=== PATIENT | male | born 1965 | race Caucasian/White ===

== ENCOUNTER 2022-11-22 15:02 | Emergency (ER) | payer OTHER, SELFPAY ==
[2022-11-22] VITALS (28 sets, daily range): BP systolic 106–168; BP diastolic 43–75; PULSE 75–90; RESP 17–25; TEMP 36.4; O2SAT 92–99
--- NOTE | ~2022-11-22 | XR_ITS ---
EXAMINATION: XR chest 1V portable DATE: 11/22/2022 16:27 INDICATION: Seizure TECHNIQUE: frontal view of the chest was obtained. COMPARISON: None FINDINGS: Mild linear discoid atelectasis at the lateral left lower lung zone. No other airspace opacities, pul monary edema, pleural effusion or pneumothorax. Cardiomegaly. IMPRESSION: 1. Cardiomegaly. Reviewed, dictated and finalized at location A. IMPRESSION: 1. Cardiomegaly.
--- NOTE | 2022-11-22 15:12 | ECG_ITS ---
Measurements Intervals [place] Rate: 81 P: 35 MS: 237 QRS: -22 QRSD: 113 T: -3 QT: 400 QTc: 466 Interpretive Statements SINUS RHYTHM WITH FIRST DEGREE AV BLOCK POSSIBLE LEFT ATRIAL ENLARGEMENT INTRAVENTRICULAR CONDUCTION DELAY DELAYED PRECORDIAL R/S TRANSITION LEFT VENTRICULAR HYPERTROPHY WITH ST-T CHANGE INFERIOR INFARCT, AGE INDETERMINATE BASELINE ARTIFACT- I, II, V1-V6 ABNORMAL ECG NO PREVIOUS ECG AVAILABLE FOR COMPARISON Electronically Signed On 11-22-2022 16:06:10 CDT by Олег Pugh D.O.
[2022-11-22 15:43] LABS: Basophils Absolute Auto 0.1 K/mm3 (0.0-0.1); Basophils Percent Auto 0.4 % (0.2-1.2); Eosinophils Absolute Auto 0.2 K/mm3 (0-0.3); Eosinophils Percent Auto 1.1 % (0-4.4); Hematocrit 51.3 % (42.0-52.0); Hemoglobin 17.2 g/dL (14.0-18.0); Immature Granulocyte Absolute 0.11 K/mm3 (0.00-0.031); Immature Granulocyte Percent A 0.8 % (0-0.5); Immature Platelet Fraction Pct 5.2 % (0.9-11.2); Lymphocytes Absolute Auto 0.78 K/mm3 (0.9-3.2); Lymphocytes Percent Auto 5.4 % (18.3-44.2); Mean Corpuscular HGB Conc 33.5 g/dl (32-36); Mean Corpuscular Volume 86.4 fl (80-100); Mean Platelet Volume 9.8 fl (7.4-10.4); Monocytes Absolute Auto 1.1 K/mm3 (0.1-0.6); Monocytes Percent Auto 7.2 % (2.6-8.5); Neutrophils Absolute Auto 12.4 K/mm3 (1.3-6.7); Neutrophils Percent Auto 85.1 % (45.5-73.1); Platelet Count Result 76 k/mm3 (150-375); Red Blood Count 5.94 M/mm3 (4.6-6.20); Red Cell Distribution Width 14.6 % (11.5-14.5); White Blood Count 14.5 K/mm3 (4.5-10.0)
[2022-11-22 15:51] LABS: Alanine Aminotransferase 53 U/L (6-50); Albumin Level 4.1 g/dL (3.5-5.1); Alkaline Phosphatase 82 U/L (38-126); Anion Gap 15 mmol/L (8-16); Aspartate Amino Transferase 62 U/L (17-59); Bilirubin,Total 0.7 mg/dL (0.2-1.3); Blood Urea Nitrogen 24 mg/dL (9-20); Calcium 8.6 mg/dL (8.4-10.2); Carbon Dioxide 17 mmol/L (22-30); Chloride 101 mmol/L (98-107); Estimated CRCL calculation 58 ml/min; Estimated Glomerular Filt Rate 39; Glucose 114 mg/dL (65-110); Potassium 3.6 mmol/L (3.4-5.0); Sodium 133 mmol/L (137-145)
--- NOTE | 2022-11-22 16:18 | ED.SEIZURE ---
HPI - Seizure General Chief Complaint: Seizure Stated Complaint: seizure, combative Time Seen by Provider: 11/22/22 15:49 History of Present Illness HPI Narrative: Patient is a 57-year-old male with a history of seizure disorder presenting after a seizure. Patient's and sister at bedside and help with the history. States that he had his first seizure approximately a year and a half ago. He has had a few seizures since then but they are mostly controlled. He takes zonisamide. Patient's states that he was out with friends all day yesterday and had more alcohol than he normally does. She states that he sometimes forgets his meds but she thinks that he took it last night. Today he was lying on the couch when he was witnessed by his daughter to have a generalized tonic-clonic seizure. EMS was called and found him to be very combative. He received IM Versed and Haldol which improved his agitation. Currently, the patient is sleeping. His neurologist is at [facility]. Related Data Allergies Allergy/AdvReac Type Severity Reaction Status Date / Time No Known Allergies Allergy Verified 11/22/22 16:46 Review of Systems Review of Systems: All systems reviewed & are unremarkable except as noted in HPI and below Exam Narrative: GENERAL: Sleeping in bed, no acute distress, awakens easily to verbal stimuli HEAD: Normocephalic, atraumatic. EYES: PERRLA and EOMI. ENT: Nares clear, no rhinorrhea or epistaxis. Dried blood around mouth NECK: Supple. CHEST: Clear to auscultation. No respiratory distress. HEART: Regular rate and rhythm ABDOMEN: Soft, nontender, nondistended EXTREMITIES: Normal range of motion. No edema. SKIN: Warm, dry, no rash. NEURO: No focal deficits. Alert and oriented x3. PSYCH: Normal mood and affect. Course Vital Signs Vital signs: Vital Signs Temperature 97.6 F 11/22/22 15:00 Pulse Rate 90 11/22/22 15:00 Respiratory Rate 17 11/22/22 15:00 Blood Pressure 145/69 H 11/22/22 15:00 Pulse Oximetry 92 11/22/22 15:00 Oxygen Delivery Room Air 11/22/22 15:00 Temperature 97.6 F 11/22/22 15:00 Pulse Rate 84 11/22/22 18:47 Respiratory Rate 22 H 11/22/22 18:47 Blood Pressure 154/67 H 11/22/22 18:47 Pulse Oximetry 92 11/22/22 18:48 Oxygen Delivery Room Air 11/22/22 18:48 Oxygen Flow Rate 10 11/22/22 15:25 MDM - Seizure MDM Narrative Medical decision making narrative: Patient is a 57-year-old male presenting after a witnessed seizure. Patient is currently on nasal cannula due to sedation related to IM Versed and Haldol given by EMS for agitation. He is currently saturating well on 3 L. Patient has a history of prior seizures, do not feel imaging is warranted at this time. No recent trauma. Work with leukocytosis, likely reactive. CMP with creatinine of 1.8. No prior records for comparison. UA is unremarkable. Ethanol is undetectable. Chest x-ray without acute abnormalities. After several hours of observation, the patient is awake and oriented. He is off oxygen and saturating well on room air. He denies any complaints currently. States that he has possibly missed a few doses of his zonisamide. Discussed that his breakthrough seizures likely related to missed doses as well as the excessive alcohol consumption yesterday. Patient states that he plans to decrease his alcohol intake. Advised that he follow-up closely with his neurologist. Appropriate return precautions given. Patient voiced understanding and is agreeable with plan. Discharge in stable condition. Differential Diagnosis Differential diagnosis: Likely focal seizure, generalized seizure and other (Breakthrough seizure) Medical Records Attestation: I reviewed the patient's medical records. Lab Data Attestation: I reviewed the patient's lab results. 11/22/22 15:27 11/22/22 15:27 Labs: Lab Results 11/22/22 11/22/22 Range/Units 15:27 16:35 WBC 14.5 H (4.5-10.0)
[2022-11-22 16:32] LABS: Ethanol < 10 mg/dL (<10)
[2022-11-22 16:57] LABS: Amphetamine Screen Urine Negative (Negative); Barbiturate Screen Urine Negative (Negative); Benzodiazepines Screen Urine Positive (Negative); Cannabinoid Screen Urine Negative (Negative); Cocaine Screen Urine Negative (Negative); Methadone Screen Urine Negative (Negative); Opiate Screen Urine Negative (Negative); Phencyclidine Screen Urine Negative (Negative)
[2022-11-22 17:00] LABS: Bacteria Urine None Seen /hpf; Need Manual Microscopic Reviewed; RBC Urine 0-2 /hpf (0-2); Squamous Epithelial Cell Urine None seen /hpf (Few); WBC Urine 0-5 /hpf
[2022-11-22 17:06] LABS: Appearance Urine Clear (Clear); Bilirubin Urine Negative (Negative); Blood Urine Negative (Negative); Color Urine Yellow (Yellow); Glucose Urine UA Negative (Negative); Ketones Urine Negative (Negative); Leukocyte Esterase Ur Negative LEU/UL (Negative); Nitrate Urine Negative (Negative); Protein Urine 1+ mg/dL (Negative); Specific Grav Ur 1.011 (1.001-1.035); pH Urine 5.5 (5.0-9.0)
[2022-11-22 17:08] LABS: Add Urine Microscopic? YES
[2022-11-22] MEDS: SODIUM CHLORIDE 0.9% IV 1,000 ML 999 ML IV CONT (17:21)
== END 2022-11-22 19:19 | disposition home or self-care (01) ==
PROVIDERS: Emergency Medicine; Emergency Provider Emergency Medicine
DX: G40.909 Epilepsy, unspecified, not intractable, without status epilepticus (principal)
CPT/HCPCS: 36415; 71045; 80053; 80307; 81001; 85025; 85055; 93005; 96360; 99284; J7030